=== PATIENT | male | born 2005 | race Caucasian/White ===

== ENCOUNTER 2025-08-03 10:56 | Emergency (ER) | payer BC, OTHER ==
[~2025-08-03] VITALS: Ht 193 cm; Wt 79.1 kg
[2025-08-03 11:48] LABS: PLATELET COUNT (AUTO) 200 K/uL (150-450); RED BLOOD CELL COUNT(AUTO) 4.83 MIL/uL (4.50-5.90); RED CELL DISTRIBUTION WIDTH 13.0 % (11.5-14.5); WHITE BLOOD COUNT (AUTO) 5.1 K/uL (4.5-11.0)
[2025-08-03 11:55] LABS: CALCIUM, TOTAL 7.9 mg/dL (8.8-10.5); CREATININE 0.87 mg/dL (0.60-1.30); GLOMERULAR FILTR. RATE CALC > 60 mL/min (>60); GLUCOSE,RANDOM 85 mg/dL (70-110); SODIUM SERUM 138 mmol/L (136-145); UREA NITROGEN, BLOOD 19 mg/dL (7-18)
[2025-08-03 12:00] LABS: ASPARTATE AMINOTRANSFERASE 16 U/L (15-37); TOTAL PROTEIN, SERUM 6.7 g/dL (6.4-8.2)
[2025-08-03 12:05] LABS: TROPONIN I-HIGH SENSITIVITY Less Than 4 ng/L (<76)
[2025-08-03] MEDS: SODIUM CHLORIDE 0.9% 1,000 ML IV ONE (13:57)
[2025-08-03 14:06] VITALS: BP 105/76; PULSE 63; RESP 15; O2SAT 100
== END 2025-08-03 14:08 | disposition short-term general hospital (02) ==
LOC: EMS 10:56 → EDBD 10:56 → EMS 14:08
DX: R55 Syncope and collapse (principal); R00.1 Bradycardia, unspecified; R61 Generalized hyperhidrosis; Z53.29 Procedure and treatment not carried out because of patient's decision for other reasons
CPT/HCPCS: 71045; 80053; 84484; 85025; 93005; 93306; 99285